=== PATIENT | female | born 1970 | race Caucasian/White ===

== ENCOUNTER 2024-11-21 13:21 | Outpatient (CLI) | payer BC | END 2024-11-21 13:22 | disposition home or self-care (01) | LOC: CSHMAMMO 13:21 | PROVIDERS: ATTEND Obstetrics & Gynecology | DX: R92.8 Other abnormal and inconclusive findings on diagnostic imaging of breast (principal) | CPT/HCPCS: G0279 ==

== ENCOUNTER 2024-12-27 11:44 | Outpatient (CLI) | payer BC | END 2024-12-27 11:45 | disposition home or self-care (01) | LOC: CSHMRI 11:44 | PROVIDERS: ATTEND Obstetrics & Gynecology | DX: D05.11 Intraductal carcinoma in situ of right breast (principal); N63.11 Unspecified lump in the right breast, upper outer quadrant | CPT/HCPCS: C8908 ==

== ENCOUNTER 2025-01-17 10:30 | Outpatient (CLI) | payer BC | END 2025-01-17 10:31 | disposition home or self-care (01) | LOC: CSHMAMMO 10:30 | PROVIDERS: ATTEND Surgery | DX: D05.11 Intraductal carcinoma in situ of right breast (principal) | CPT/HCPCS: 96372; A9697 ==